=== PATIENT | female | born 1995 | race Asian ===

== ENCOUNTER 2019-10-18 17:10 | Emergency (ER) | payer BC, MEDICAID ==
[~2019-10-18] VITALS: Ht 177.8 cm; Wt 131.1 kg
--- NOTE | 2019-10-18 18:16 | NUR ---
THIS IS A 24Y F THAT COMES IN WITH COUGH [id number], LOST VOICE, AND UNABLE TO TASTE FOOD. PT IS CURRENTLY SITTING UP ON [employer] CONNECTED TO MONITORS, VSS, NADN. CALL LIGHT IN REACH. AWAITING ORDERS AT THIS TIME
--- NOTE | 2019-10-18 18:16 | NUR ---
MD AT BEDSIDE TO ASSESS PT
[2019-10-18 18:17] VITALS: BP 119/77
--- NOTE | 2019-10-18 18:27 | NUR ---
PT TO XRAY
[2019-10-18 18:44] LABS: BASOPHILS # (AUTO) 0.07 x10^3/uL (0-0.1); BASOPHILS % (AUTO) 1 % (0-1); EOSINOPHILS # (AUTO) 0.41 x10^3/uL (0-0.4); EOSINOPHILS % (AUTO) 5 % (1-7); LYMPHOCYTES # (AUTO) 2.35 x10^3/uL (1-3.4); LYMPHOCYTES % (AUTO) 28 % (22-44); MD NO; MEAN CORPUSCULAR HEMOGLOBIN 26.9 pg (27.0-34.8); MEAN CORPUSCULAR HGB CONC 33.6 g/dL (32.4-35.8); MEAN PLATELET VOLUME 7.5 fL (7.4-10.4); MONOCYTES # (AUTO) 0.53 x10^3/uL (0.2-0.8); MONOCYTES % (AUTO) 6 % (2-9); NEUTROPHILS % (AUTO) 60 % (42-75); PLATELET COUNT 340 x10^3/uL (130-400); RED BLOOD COUNT 5.05 x10^6/uL (3.82-5.3)
[2019-10-18 18:54] LABS: ALANINE AMINOTRANSFERASE 38 U/L (12-78); ALBUMIN 3.5 g/dL (3.4-5.0); ANION GAP 5 mmol/L (5-15); CALCIUM 8.8 mg/dL (8.5-10.1); CHLORIDE 107 mmol/L (98-107); CREATININE 0.75 mg/dL (0.55-1.02)
[2019-10-18 18:57] LABS: ALKALINE PHOSPHATASE 78 U/L (45-117); BILIRUBIN,TOTAL 0.2 mg/dL (0.2-1.0)
--- NOTE | 2019-10-18 18:59 | NUR ---
ALL RESULTS BACK AT THIS TIME. CHART UP FOR RECHECK.
--- NOTE | 2019-10-18 19:08 | NUR ---
AT BEDSIDE TO REASSESS PT AND DISCUSS POC
== END 2019-10-18 19:35 | disposition home or self-care (01) ==
LOC: ED 19:24
DX: J20.8 Acute bronchitis due to other specified organisms (principal); F17.200 Nicotine dependence, unspecified, uncomplicated
CPT/HCPCS: 36415; 71046; 80053; 83690; 85025; 99284